=== PATIENT | male | born 1950 | race Caucasian/White ===

== ENCOUNTER → 2017-03-03 | Outpatient (CLI) | payer MEDICARE ==
[~2017-03-03] MED LIST: ATOR10TA66 PO; CARB1TAB40 PO; CATHETER FLUSH 10 ML SYR IV PRN; IOHEXOL 350 MG/ML 100 ML (OMNIPAQUE 350) VIAL IV ONE; NS 100 ML (IVPB) BAG IV ONE
--- NOTE | 2017-03-03 14:00 | Diagnostic Imaging Report ---
PROCEDURE: CT abdomen and pelvis with contrast. TECHNIQUE: Multiple contiguous axial images were obtained through the abdomen and pelvis after administration of intravenous contrast. INDICATION: Weight loss of one years duration. FINDINGS: There is heterogeneous nodular prostatomegaly indenting the urinary bladder base. A prostatic malignancy could not be excluded, correlate clinically. Urinary bladder itself appeared intrinsically unremarkable. No periprosthetic or pelvic lymphadenopathy. There is no hydronephrosis. Few tiny low-density hepatic foci near the dome of both left and right lobes are too small to be definitively characterized less than 1 cm but have the appearance most likely reflective of cysts. No convincing evidence for solid or enhancing liver mass. There is no bile duct dilatation. The nonfocal spleen is normal in size and the pancreas was normal. There is no adrenal mass. There is no abdominal, pelvic, mesenteric or retroperitoneal lymphadenopathy. The rectum is nondistended, this may account for its asymmetric somewhat nodular wall thickening. Digital rectal exam or optical sigmoidoscopy recommended to exclude the possibility of mass. No perirectal adenopathy or infiltration. There is no evidence for bowel, biliary or urinary tract obstruction. There is lumbar spondylosis with no acute or suspicious site of bone production or destruction. The lung bases were unremarkable. No free air or pneumatosis. IMPRESSION: 1. Heterogeneous nodular prostamegaly indents the bladder base, unobstructed urinary tracts with no abdominopelvic adenopathy. Scattered subcentimeter hepatic hypodensities multiple small cysts are felt most likely. There was no bowel, biliary or urinary tract obstruction and no lymphadenopathy or acute/suspicious bony pathology. 2. Somewhat heterogeneous nodular thickening of the rectum may merely reflect its lack of distention however neoplastic infiltration could not be entirely excluded. MARILU versus optical scope recommended to exclude the possibility of mass. Dictated by: Dictated on workstation # [id number]
== END ==
LOC: RAD 11:23
PROVIDERS: ATTEND Family Medicine
DX: N40.0 Benign prostatic hyperplasia without lower urinary tract symptoms (principal); K76.9 Liver disease, unspecified; K62.89 Other specified diseases of anus and rectum
CPT/HCPCS: 74177

== ENCOUNTER 2017-03-14 09:00 | Outpatient (CLI) | payer MEDICARE ==
[~2017-03-14] VITALS: Ht 172.7 cm; Wt 61.2 kg
[~2017-03-14 09:00] MED LIST changes: +ASPI-586 PO; +CARB1TAB41 PO; -CATHETER FLUSH 10 ML SYR IV PRN; +CYCL10TA9 PO; -IOHEXOL 350 MG/ML 100 ML (OMNIPAQUE 350) VIAL IV ONE; -NS 100 ML (IVPB) BAG IV ONE
== END 2017-03-14 09:07 ==
LOC: PREOP 09:00
PROVIDERS: ATTEND Surgery
DX: K92.1 Melena; Z01.818 Encounter for other preprocedural examination; R93.3 Abnormal findings on diagnostic imaging of other parts of digestive tract; R63.4 Abnormal weight loss

== ENCOUNTER 2017-03-15 06:35 | Day surgery (SDC) | payer MEDICARE ==
[~2017-03-15] VITALS: Ht 172.7 cm; Wt 61.2 kg
--- OUTSIDE RECORDS SUMMARY | 2017-03-15 06:38 | XMS REPORT | Continuity of Care Document ---
Author Author [facility] Organization [facility] Address Unknown Phone Unavailable Allergies Active Description Code Type Severity Reaction Onset Reported/Identified Relationship to Patient Clinical Status Yes No Known Drug Allergies [id number] Drug Allergy Unknown N/ A 08/13/2013 Medications Problems Date Dx Coded Attending Type Code Diagnosis Diagnosed By 03/03/2017 ROWENA NAYLOR MD Ot 332.0 PARALYSIS AGITANS 03/08/2017 GELLENDER DO, NIRAV Witt Ot K62.89 OTHER SPECIFIED DISEASES OF ANUS AND REC 03/08/2017 GELLENDER DO, NIRAV Witt Ot K76.9 LIVER DISEASE, UNSPECIFIED 03/08/2017 GELLENDER DO, NIRAV Witt Ot N40.0 BENIGN PROSTATIC HYPERPLASIA WITHOUT LOW 03/08/2017 GELLENDER DO, NIRAV Witt Ot K62.89 OTHER SPECIFIED DISEASES OF ANUS AND REC 03/08/2017 GELLENDER DO, NIRAV Witt Ot K76.9 LIVER DISEASE, UNSPECIFIED 03/08/2017 GELLENDER DO, NIRAV Witt Ot N40.0 BENIGN PROSTATIC HYPERPLASIA WITHOUT LOW 03/08/2017 GELLENDER DO, NIRAV Witt Ot K62.89 OTHER SPECIFIED DISEASES OF ANUS AND REC 03/08/2017 GELLENDER DO, NIRAV Witt Ot K76.9 LIVER DISEASE, UNSPECIFIED 03/08/2017 GELLENDER DO, NIRAV Witt Ot N40.0 BENIGN PROSTATIC HYPERPLASIA WITHOUT LOW 03/09/2017 ROWENA NAYLOR MD Ot 332.0 PARALYSIS AGITANS 03/09/2017 GELLENDER DO, NIRAV Witt Ot K62.89 OTHER SPECIFIED DISEASES OF ANUS AND REC 03/09/2017 GELLENDER DO, NIRAV Witt Ot K76.9 LIVER DISEASE, UNSPECIFIED 03/09/2017 GELLENDER DO, NIRAV Witt Ot N40.0 BENIGN PROSTATIC HYPERPLASIA WITHOUT LOW 03/09/2017 ROWENA NAYLOR MD Ot 332.0 PARALYSIS AGITANS 03/09/2017 GELLENDER DO, NIRAV Witt Ot K62.89 OTHER SPECIFIED DISEASES OF ANUS AND REC 03/09/2017 NIRAV JOSE DO Ot K76.9 LIVER DISEASE, UNSPECIFIED 03/09/2017 NIRAV JOSE DO Ot N40.0 BENIGN PROSTATIC HYPERPLASIA WITHOUT LOW Procedures Results Encounters ACCT No. Visit Date/Time Discharge Status Pt. Type Provider Facility Loc./Unit Complaint [id number] 02/19/2014 08:04:00 2013 23:59:59 CLS Outpatient DAYDAY TURNER, ROWENA Fernandez [facility] RAD PARKINSON 332.0 [id number] 08/13/2013 13:04:00 2012 23:59:59 CLS Outpatient [id number] 08/07/2013 07:18:00 2012 23:59:59 CLS Outpatient [id number] 03/16/2017 12:45:00 PEN Jaquan HSU MD, MARIAMA Coats [facility] ENDO WEIGHT LOSS/BLOOD IN STOOLS/ABNORMAL CT [id number] 03/03/2017 11:23:00 ACT Outpatient NIRAV JOSE DO [facility] RAD WEIGHT LOSS
[2017-03-15] MEDS ORDERED: FLUMAZENIL (ROMAZICON) 0.1 MG/ML 5 ML VIAL INJ PRN (07:00)
[2017-03-15] MEDS ORDERED: NALOXONE 0.4 MG/ML 1 ML (NARCAN) VIAL IVP PRN (07:00)
[2017-03-15] MEDS ORDERED: HURRICAINE EXT TUBE (BENZOCAINE) XX PRN (07:00)
[2017-03-15] MEDS ORDERED: NS IV 500 ML 500 ML IV SCH (07:00)
[2017-03-15 07:03] VITALS: BP 145/102
[2017-03-15] MEDS ORDERED: fentaNYL INJECTION 100 MCG/2 ML AMP ONE ×2 (08:04)
[2017-03-15] MEDS ORDERED: MIDAZOLAM 2 MG/2 ML (VERSED) VIAL ONE ×4 (08:05)
[2017-03-15] MEDS ORDERED: HURRICAINE EXT TUBE (BENZOCAINE) ONE (08:05)
[2017-03-15] MEDS: fentaNYL INJECTION 100 MCG/2 ML AMP IVP PRN ×2 (08:20→08:23)
[2017-03-15] MEDS: MIDAZOLAM 2 MG/2 ML (VERSED) VIAL IVP PRN ×2 (08:22→08:25)
[2017-03-15] MEDS ORDERED: proPOfol 200 MG/20 ML (DIPRIVAN) VIAL IV ONE (08:49)
--- NOTE | 2017-03-15 09:11 | Conscious Sedation/ASA ---
Conscious Sedation Pre-Proced Time Reviewed: 08:09 ASA Class: 3 Airway Mallampati Classification: (upper mattaponi appropriate class) I. II. III, IV Lungs Heart ASA score ASA 1: a normal healthy patient ASA 2: a patient with a mild systemic disease (mid diabetes, controlled hypertension, obesity ASA 3: a patient with a severe systemic disease that limits activity (angina , COPD, prior Myocardial infarction) ASA 4: a patient with an incapacitating disease that is a constant threat to life (CHF, renal failure) ASA 5: a moribund patient not expected to survive 24 hrs. (ruptured aneurysm) ASA 6: a declared brain patient whose organs are being harvested. For emergent operations, add the letter E after the classification Grade 2 Sedation Plan: Discussed options with patient/fam Note The patient is an appropriate candidate to undergo the planned procedure, sedation, and anesthesia. The patient immediately re-assessed prior to indication. MARIAMA HSU MD Mar 15, 2017 9:11 am
--- NOTE | 2017-03-15 09:13 | Anesthesia-Procedure Note ---
Procedure Start/Stop Time Date of Procedure: Mar 15, 2017 Start Time: 08:55 Referring Physician: Elieser Stop Time: 09:00 Procedures/Interventions Procedures Called to Endo to assist Dr. Mon with EGD. Had attempted multiple times under conscious sedation to pass EGD scope unsuccessfully due to epiglottis/ airway. Brief history obtained. Preoxygenated with 100% FiO2, Propofol 100mg IV given, DL with Urena 2 and successful placement of scope in esophagus. Pt maintained spontaneous ventilation throughout procedure, SPO2 99%. Procedure completed, vital signs stable. JENNIE RAYA CRNA Mar 15, 2017 09:13
--- NOTE | 2017-03-15 09:13 | Endo Procedure Record ---
Endo Procedure Report Date of Procedure Mar 15, 2017 Surgeon (s) MARIAMA HSU MD Post Procedure/Op Diagnosis hiatal hernia Hemorrhoids and diverticulosis Procedure Performed upper GI endoscopy with antral biopsy Colonoscopy to cecum Description of Procedure Anesthesia Type: Conscious Sedation Estimated blood loss (mL): none Specimen(s) collected/removed antral mucosa for Helicobacter Description of the Procedure see operative report Findings of the Procedure hiatal hernia. Hemorrhoids and diverticulosis on colonoscopy MARIAMA HSU MD Mar 15, 2017 9:13 am
--- NOTE | 2017-03-15 09:14 | Discharge Inst-Simple/Standard ---
Discharge Inst-Standard Discharge Medications New, Converted or Re-Newed RX: Other Patient Instructions/Follow Up Plan of Care/Instructions/FU: follow-up with Dr. Joshi Activity as Tolerated: Yes Discharge Diet: No Restrictions MARIAMA HSU MD Mar 15, 2017 9:14 am
[2017-03-15 09:25] VITALS: BP 128/81
[2017-03-15 09:55] VITALS: BP 127/83
[2017-03-15 10:15] VITALS: BP 127/83
--- NOTE | 2017-03-16 13:04 | PROCEDURE REPORT ---
PROCEDURE PHYSICIAN: MARIAMA HSU DATE OF PROCEDURE: 03/15/2017 PROCEDURE: 1. Upper GI endoscopy with antral biopsy. 2. Colonoscopy. SURGEON: Elieser. INDICATION FOR THE PROCEDURE: This gentleman with severe Parkinson's disease, reported a weight loss of 30 pounds over a 6 month period. In addition, there was occult blood in the stools. A CT scan showed thickening and irregularity of the rectum. Therefore, it was felt reasonable to perform an upper endoscopy, with concomitant colonoscopy. Informed consent was obtained after reviewing the procedures in detail. DESCRIPTION OF PROCEDURE: 1. UPPER GI ENDOSCOPY/ANTRAL BIOPSY: He was placed in left lateral decubitus position and his vital signs were monitored. Conscious sedation was achieved initially using Versed and propofol but subsequently, we had the RADIOLOGIST CHIEF OF BREAST IMAGING take over with propofol infusion. The flexible gastroscope was introduced down the pharynx, past the esophagus to the stomach, into the proximal duodenum. During the initial attempts. the epiglottis would not move, prompting intubation of the trachea. Subsequently, our RADIOLOGIST CHIEF OF BREAST IMAGING was able to facilitate visualizing the pharynx using a laryngoscope and help guide the gastroscope down the esophagus. FINDINGS: 1. Esophagus: Quite tortuous with a short hiatal hernia. 2. Stomach and duodenum: Were normal. 3. An antral biopsy was obtained for Helicobacter status. He tolerated the procedure well and was turned around in preparation for colonoscopy. IMPRESSION: 1. Weight loss. 2. No contributing lesions found in the stomach. 2. COLONOSCOPY: Examination of the perianal area revealed large external hemorrhoids. Digital examination revealed a thickened prostate. It is notable that his PSA is elevated and therefore he would be evaluated by a urologist, for consideration of prostate biopsy. The colonoscope was then introduced into the rectum and advanced all the way up to the cecum. The scope was then withdrawn slowly and the mucosa examined in a systematic fashion. FINDINGS: 1. External and internal hemorrhoids. 2. Very few sigmoid diverticula. He tolerated the procedures well and was taken back to the nursing area in a stable condition. IMPRESSION: 1. Blood in stools. 2. Hemorrhoids. possibly contributing factor. 3. No polyps. Job ID: [id number] Dictated Date: 03/15/2017 09:11:18 Quarryman Date: 03/16/2017 12:50:46 / addison STOCK
== END 2017-03-15 10:15 | disposition home or self-care (01) ==
LOC: ENDO 06:35
PROVIDERS: ATTEND Surgery
DX: R63.4 Abnormal weight loss (principal); K57.30 Diverticulosis of large intestine without perforation or abscess without bleeding; K64.4 Residual hemorrhoidal skin tags; K64.8 Other hemorrhoids; K92.1 Melena; E78.5 Hyperlipidemia, unspecified; G20 Parkinson's disease; F02.81 Dementia in other diseases classified elsewhere, unspecified severity, with behavioral disturbance

== ENCOUNTER 2017-04-21 11:15 | Inpatient (IN) | payer MEDICARE ==
[~2017-04-21] VITALS: Ht 172.7 cm; Wt 64.0 kg
--- NOTE | 2017-04-21 11:30 | HISTORY AND PHYSICAL ---
DATE OF SERVICE: CHIEF COMPLAINT: Patient to be admitted to the hospital for cellulitis of the left hand going up the left forearm to the elbow. The patient has been treated on an outpatient basis without success. The patient needs inpatient and IV antibiotics. The patient has a history of Parkinson's disease. MEDICATIONS: The patient now on: 1. Sinemet. 2. Flexeril. 3. Maybe aspirin. The patient has been on oral antibiotics without success. The patient with outpatient failure. ALLERGIES TO MEDICATIONS: Denies. SURGERIES: Denies. PAST MEDICAL HISTORY: The patient has Parkinson's disease. REVIEW OF SYSTEMS: HEAD: Denies headache, dizziness, fainting. EENT: Denies diplopia, tinnitus, sore throat. HEART. Denies heartburn, chest pain, shortness of breath. LUNGS: Denies asthma, TB, coughing, congestion, or wheezing. GASTROINTESTINAL: Appetite fair. Denies blood in stools, diarrhea, constipation, nausea, vomiting. GENITOURINARY: Denies blood pain, frequency. PHYSICAL EXAMINATION: GENERAL: The patient is a white male, well-nourished, well-developed, in no acute respiratory distress at rest. : Not inflamed. EYES: No conjunctivitis. THROAT: Clear throat, not inflamed. NECK: Thyroid not enlarged. cervical lymphadenopathy noted. HEART: Regular rate and rhythm. LUNGS: Clear to auscultation. ABDOMEN: Soft. Liver and spleen nonpalpable. EXTREMITIES: Left hand and arm, red and inflamed and swollen. No pretibial edema. Job ID: [id number] DocumentID: [id number] Dictated Date: 04/21/2017 11:13:44 Joint Supervisor Date: 04/21/2017 11:29:56 Dictated By: NIRAV JOSE DO
--- OUTSIDE RECORDS SUMMARY | 2017-04-21 11:52 | XMS REPORT | Continuity of Care Document ---
Author Author [facility] Organization [facility] Address Unknown Phone Unavailable Allergies Active Description Code Type Severity Reaction Onset Reported/Identified Relationship to Patient Clinical Status Yes No Known Drug Allergies [id number] Drug Allergy Unknown N/ A 03/15/2017 Medications Problems Date Dx Coded Attending Type [...] Ot N40.0 BENIGN PROSTATIC HYPERPLASIA WITHOUT LOW 03/14/2017 SHADI TURNER, MARIAMA Coats Ot K92.1 MELENA 03/14/2017 MARIAMA HSU MD Ot R63.4 ABNORMAL WEIGHT LOSS 03/14/2017 SHADI TURNER, MARIAMA Coats Ot R93.3 ABNORMAL FINDINGS ON DX IMAGING OF PRT D 03/14/2017 SHADI TURNER, MARIAMA Coats Ot Z01.818 ENCOUNTER FOR OTHER PREPROCEDURAL EXAMIN 03/15/2017 MOISÉS SHAY DO Ot 455.0 INT HEMORRHOID W/O COMPL 03/15/2017 MOISÉS SHAY DO Ot 562.10 DIVERTICULOSIS COLON (W/O MENT OF HEMORR 03/15/2017 MOISÉS SHAY DO Ot V76.51 SCREEN MAL NEOP-COLON 03/15/2017 MOISÉS SHAY DO Ot V72.84 EXAM PRE-OPERATIVE NOS 03/15/2017 MARIAMA HSU MD Ot E78.5 HYPERLIPIDEMIA, UNSPECIFIED 03/15/2017 MARIAMA HSU MD Ot F02.81 DEMENTIA IN OTH DISEASES CLASSD ELSWHR W 03/15/2017 MARIAMA HSU MD Ot G20 PARKINSON'S DISEASE 03/15/2017 MARIAMA HSU MD Ot K57.30 DVRTCLOS OF LG INT W/O PERFORATION OR AB 03/15/2017 MARIAMA HSU MD Ot K64.4 RESIDUAL HEMORRHOIDAL SKIN TAGS 03/15/2017 MARIAMA HSU MD Ot K64.8 OTHER HEMORRHOIDS 03/15/2017 MARIAMA HSU MD Ot K92.1 MELENA 03/15/2017 MARIAMA HSU MD Ot R63.4 ABNORMAL WEIGHT LOSS 03/25/2017 MARIAMA HSU MD Ot E78.5 HYPERLIPIDEMIA, UNSPECIFIED 03/25/2017 MARIAMA HSU MD Ot F02.81 DEMENTIA IN OTH DISEASES CLASSD ELSWHR W 03/25/2017 MARIAMA HSU MD Ot G20 PARKINSON'S DISEASE 03/25/2017 MARIAMA SHU MD Ot K57.30 DVRTCLOS OF LG INT W/O PERFORATION OR AB 03/25/2017 SHADI TURNER, MARIAMA Coats Ot K64.4 RESIDUAL HEMORRHOIDAL SKIN TAGS 03/25/2017 MARIAMA HSU MD Ot K64.8 OTHER HEMORRHOIDS 03/25/2017 MARIAMA HSU MD Ot K92.1 MELENA 03/25/2017 MARIAMA HSU MD Ot R63.4 ABNORMAL WEIGHT LOSS 03/27/2017 NIRAV JOSE DO Ot K62.89 OTHER SPECIFIED DISEASES OF ANUS AND REC 03/27/2017 NIRAV JOSE DO Ot K76.9 LIVER DISEASE, UNSPECIFIED 03/27/2017 NIRAV JOSE DO Ot N40.0 BENIGN PROSTATIC HYPERPLASIA WITHOUT LOW 03/28/2017 MARIAMA HSU MD Ot E78.5 HYPERLIPIDEMIA, UNSPECIFIED 03/28/2017 MARIAMA HSU MD Ot F02.81 DEMENTIA IN OTH DISEASES CLASSD ELSWHR W 03/28/2017 MARIAMA HSU MD Ot G20 PARKINSON'S DISEASE 03/28/2017 MARIAMA HSU MD Ot K57.30 DVRTCLOS OF LG INT W/O PERFORATION OR AB 03/28/2017 MARIAMA HSU MD Ot K64.4 RESIDUAL HEMORRHOIDAL SKIN TAGS 03/28/2017 MARIAMA HSU MD Ot K64.8 OTHER HEMORRHOIDS 03/28/2017 MARIAMA HSU MD Ot K92.1 MELENA 03/28/2017 MARIAMA HSU MD Ot R63.4 ABNORMAL WEIGHT LOSS Procedures Results Encounters ACCT No. Visit Date/Time Discharge Status Pt. Type Provider Facility Loc./Unit Complaint [id number] 03/15/2017 06:35:00 2016 10:15:00 DIS Outpatient MARIAMA HSU MD [facility] ENDO WEIGHT LOSS/BLOOD IN STOOLS/ ABNORMAL CT [id number] 03/14/2017 09:00:00 2016 09:07:00 DIS Outpatient MARIAMA HSU MD [facility] PREOP WEIGHT LOSS/BLOOD IN STOOL/ ABNORMAL CT [id number] 03/03/2017 11:23:00 2016 23:59:59 CLS Outpatient NIRAV JOSE DO [facility] RAD WEIGHT LOSS [id number] 02/19/2014 08:04:00 2013 23:59:59 CLS Outpatient ROWENA NAYLOR MD [facility] RAD PARKINSON 332.0 [id number] 08/13/2013 13:04:00 2012 23:59:59 CLS Outpatient MOISÉS SHAY DO [facility] SDC SCREENING [id number] 08/07/2013 07:18:00 2012 23:59:59 CLS Outpatient MOISÉS SHAY DO [facility] PREOP SCREENING
[2017-04-21 12:00] VITALS: BP 149/83
[2017-04-21 13:00] LABS: MEAN PLATELET VOLUME 10.4 FL (7.4-10.4); RED BLOOD COUNT 4.03 10^6/uL (4.35-5.85); WHITE BLOOD COUNT 10.2 10^3/uL (4.3-11.0)
[2017-04-21] MEDS ORDERED: CEFD300C3 PO (13:10)
[2017-04-21] MEDS ORDERED: DOXY100T2 PO (13:10)
[2017-04-21] MEDS: LEVOFLOXACIN 750 MG/D5W 150 ML PRE-MIX IV SCH (13:10)
[2017-04-21] MEDS ORDERED: CARB1TAB19 PO (13:10)
[2017-04-21 13:18] LABS: ALANINE AMINOTRANSFERASE 6 U/L (0-55); ALBUMIN 3.8 GM/DL (3.2-4.5); ANION GAP 11 MMOL/L (5-14); ASPARTATE AMINO TRANSFERASE 19 U/L (5-34); BILIRUBIN,TOTAL 0.7 MG/DL (0.1-1.0); BLOOD UREA NITROGEN 11 MG/DL (7-18); BUN/CREATININE RATIO 16; CALCIUM 9.4 MG/DL (8.5-10.1); CARBON DIOXIDE 26 MMOL/L (21-32); CHLORIDE 102 MMOL/L (98-107); GFR ESTIMATED > 60; GLUCOSE 94 MG/DL (70-105); SODIUM 139 MMOL/L (135-145); TOTAL PROTEIN 7.3 GM/DL (6.4-8.2)
[2017-04-21] MEDS: CATHETER FLUSH 10 ML SYR IV SCH ×2 (14:21→20:48)
[2017-04-21] MEDS ORDERED: VANCOMYCIN 1250 MG/NS 250 ML IVPB IV NR ×2 (14:30)
[2017-04-21] MEDS: SINEMET 25/100 (CARBIDOPA/LEVODOPA) TAB PO SCH ×2 (15:02→19:28)
[2017-04-21 16:00] VITALS: BP 133/80
[2017-04-21] MEDS: SINEMET CR 50/200 (CARBIDOPA/LEVODOPA SA) TAB PO SCH (16:55)
[2017-04-21] MEDS: CYCLOBENZAPRINE 10 MG (FLEXERIL) TAB PO SCH (16:55)
[2017-04-21] MEDS: ENOXAPARIN 40 MG/0.4 ML (LOVENOX) SYR SC SCH (16:55)
[2017-04-21 19:51] VITALS: BP 125/69
[2017-04-21] MEDS: ATORVASTATIN 10 MG (LIPITOR) TABLET PO SCH (20:48)
[2017-04-22] VITALS: BP 113/63
[2017-04-22] MEDS: VANCOMYCIN 1 GM/NS 250 ML IVPB IV SCH ×4 (02:33→14:56)
[2017-04-22 04:00] VITALS: BP 121/63
[2017-04-22] MEDS: SINEMET 25/100 (CARBIDOPA/LEVODOPA) TAB PO SCH ×4 (04:04→18:16)
[2017-04-22] MEDS: CYCLOBENZAPRINE 10 MG (FLEXERIL) TAB PO SCH ×2 (04:04→16:36)
[2017-04-22 05:24] LABS: MEAN PLATELET VOLUME 10.4 FL (7.4-10.4); RED BLOOD COUNT 4.05 10^6/uL (4.35-5.85); RED CELL DISTRIBUTION WIDTH 12.9 % (10.0-14.5); WHITE BLOOD COUNT 7.8 10^3/uL (4.3-11.0)
[2017-04-22 05:51] LABS: ALANINE AMINOTRANSFERASE < 6 U/L (0-55); ALBUMIN 3.3 GM/DL (3.2-4.5); ANION GAP 8 MMOL/L (5-14); ASPARTATE AMINO TRANSFERASE 16 U/L (5-34); BILIRUBIN,TOTAL 0.8 MG/DL (0.1-1.0); BLOOD UREA NITROGEN 12 MG/DL (7-18); BUN/CREATININE RATIO 18; CALCIUM 8.9 MG/DL (8.5-10.1); CARBON DIOXIDE 27 MMOL/L (21-32); CHLORIDE 105 MMOL/L (98-107); CREATININE SERUM 0.67 MG/DL (0.60-1.30); GFR ESTIMATED > 60; GLUCOSE 97 MG/DL (70-105); SODIUM 140 MMOL/L (135-145); TOTAL PROTEIN 6.3 GM/DL (6.4-8.2)
[2017-04-22] MEDS: CATHETER FLUSH 10 ML SYR IV SCH ×3 (06:23→21:23)
[2017-04-22] MEDS: SINEMET CR 50/200 (CARBIDOPA/LEVODOPA SA) TAB PO SCH ×3 (06:23→16:36)
[2017-04-22 08:14] VITALS: BP 136/74
--- NOTE | 2017-04-22 11:11 | Progress Note (SOAP) ---
Subjective Subjective Date Seen by Provider: Apr 22, 2017 Time Seen by Provider: 10:30 66 yo M no overnight events- admitted for cellulitis of his left arm after a cyst ruptured. Pt has been on antibiotics as an outpt without resolution. Review of Systems General: No Chills, No Night Sweats HEENT: No Visual Changes Pulmonary: No Dyspnea, No Cough Cardiovascular: No: Chest Pain, Palpitations Gastrointestinal: No: Nausea, Vomiting Genitourinary: No Dysuria Musculoskeletal: arm pain (left), No: neck pain, shoulder pain Neurological: Weakness Objective Exam Vital Signs Vital Signs Date Time Temp Pulse Resp B/P (MAP) Pulse Ox O2 Delivery O2 Flow Rate FiO2 04/22/17 08:14 97.3 82 20 136/74 99 Room Air 04/22/17 04:00 98.4 72 18 121/63 99 Room Air 04/22/17 00:00 98.5 74 20 113/63 99 Room Air 04/21/17 19:51 97.9 76 19 125/69 97 Room Air 04/21/17 16:00 96.4 71 18 133/80 99 Room Air 04/21/17 12:30 Room Air 04/21/17 12:00 96.9 76 18 149/83 100 Room Air General Appearance: No Apparent Distress, WD/WN HEENT: PERRL/EOMI Neck: Full Range of Motion, Other (pedunculated cyst/mass noted in neck.) Respiratory: Chest Non Tender, Lungs Clear, Normal Breath Sounds, No Accessory Muscle Use, No Respiratory Distress Cardiovascular: Regular Rate, Rhythm, No Edema Gastrointestinal: Normal Bowel Sounds, Soft Rectal: Deferred Back: No CVA Tenderness Extremity: Non Tender, No Calf Tenderness, Other (left arm- erythema- fluctuance in left forearm- warmth noted.) Neurologic/Psychiatric: Alert, Oriented x3, No Motor/Sensory Deficits Skin: Warm/Dry Lymphatic: No Adenopathy Results Lab Laboratory Tests 04/21/17 12:37: White Blood Count 10.2, Red Blood Count 4.03L, Hemoglobin 12.9L, Hematocrit 39L , Mean Corpuscular Volume 97, Mean Corpuscular Hemoglobin 32, Mean Corpuscular Hemoglobin Concent 33, Red Cell Distribution Width 13.0, Platelet Count 190, Mean Platelet Volume 10.4, Sodium Level 139, Potassium Level 4.0, Chloride Level 102, Carbon Dioxide Level 26, Anion Gap 11, Blood Urea Nitrogen 11, Creatinine 0.70, Estimat Glomerular Filtration Rate > 60, BUN/Creatinine Ratio 16, Glucose Level 94, Calcium Level 9.4, Total Bilirubin 0.7, Aspartate Amino Transf (AST/SGOT) 19, Alanine Aminotransferase (ALT/SGPT) 6, Alkaline Phosphatase 74, Total Protein 7.3, Albumin 3.8 04/22/17 04:55: White Blood Count 7.8, Red Blood Count 4.05L, Hemoglobin 12.9L, Hematocrit 39L, Mean Corpuscular Volume 96, Mean Corpuscular Hemoglobin 32, Mean Corpuscular Hemoglobin Concent 33, Red Cell Distribution Width 12.9, Platelet Count 172, Mean Platelet Volume 10.4, Sodium Level 140, Potassium Level 4.0, Chloride Level 105, Carbon Dioxide Level 27, Anion Gap 8, Blood Urea Nitrogen 12, Creatinine 0.67, Estimat Glomerular Filtration Rate > 60, BUN/Creatinine Ratio 18, Glucose Level 97, Calcium Level 8.9, Total Bilirubin 0.8, Aspartate Amino Transf (AST/SGOT) 16, Alanine Aminotransferase (ALT/SGPT) < 6, Alkaline Phosphatase 62, Total Protein 6.3L, Albumin 3.3 Assessment/Plan Assessment/Plan Assessment/Plan 66 yo M cellulitis of left arm- continue vancomycin, levofloxacin- appearing. Parkinson disease-continue sinemet hyperlipidemia- on statin. Dispo: afebrile- continue IV antibiotics- will monitor for improvement- possibly his left forearm may been incision and drainage Problems: Clinical Quality Measures DVT/VTE Risk/Contraindication: Risk Factor Score Per Nursin RFS Level Per Nursing on Admit: 4+=Very High DONALD BERMUDEZ MD Apr 22, 2017 11:11
[2017-04-22 12:00] VITALS: BP 147/78
[2017-04-22] MEDS ORDERED: TROUGH ORDER-PHARMACY XX NR (13:30)
[2017-04-22] MEDS: LEVOFLOXACIN 750 MG/D5W 150 ML PRE-MIX IV SCH (13:43)
[2017-04-22] MEDS: ENOXAPARIN 40 MG/0.4 ML (LOVENOX) SYR SC SCH (14:56)
[2017-04-22 16:00] VITALS: BP 123/71
[2017-04-22 20:18] VITALS: BP 123/75
[2017-04-22] MEDS: ATORVASTATIN 10 MG (LIPITOR) TABLET PO SCH (21:23)
[2017-04-23] VITALS: BP 159/88
[2017-04-23] MEDS: VANCOMYCIN 1 GM/NS 250 ML IVPB IV SCH ×4 (02:42→14:11)
[2017-04-23] MEDS: CYCLOBENZAPRINE 10 MG (FLEXERIL) TAB PO SCH ×2 (04:28→16:12)
[2017-04-23] MEDS: SINEMET 25/100 (CARBIDOPA/LEVODOPA) TAB PO SCH ×4 (04:28→18:37)
[2017-04-23] MEDS: CATHETER FLUSH 10 ML SYR IV SCH ×3 (05:08→21:26)
[2017-04-23] MEDS: SINEMET CR 50/200 (CARBIDOPA/LEVODOPA SA) TAB PO SCH ×3 (05:31→16:12)
[2017-04-23 08:12] VITALS: BP 142/80
[2017-04-23] MEDS: LEVOFLOXACIN 750 MG/D5W 150 ML PRE-MIX IV SCH (12:18)
[2017-04-23] MEDS: CATHETER FLUSH 10 ML SYR IV PRN (12:18)
--- NOTE | 2017-04-23 12:26 | Progress Note (SOAP) ---
Subjective Subjective Date Seen by Provider: Apr 23, 2017 Time Seen by Provider: 11:55 66 yo M no overnight events- admitted for cellulitis of his left arm after a cyst ruptured. Pt has been on antibiotics as an outpt without resolution. Doing better pain has improved- He feels like the antibiotics are working. Review of Systems General: No Chills, No Night Sweats HEENT: No Visual Changes Pulmonary: No Dyspnea, No Cough Cardiovascular: No: Chest Pain, Palpitations Gastrointestinal: No: Nausea, Vomiting Genitourinary: No Dysuria Musculoskeletal: arm pain (left), No: neck pain, shoulder pain Neurological: Weakness Objective Exam Vital Signs Vital Sign - Last 12Hours 04/21/17 12:00 Temp 96.9 Pulse 76 Resp 18 B/P (MAP) 149/83 Pulse Ox 100 O2 Delivery Room Air Capillary Refill : Less Than 3 Seconds General Appearance: No Apparent Distress, WD/WN HEENT: PERRL/EOMI Neck: Full Range of Motion, Other (pedunculated cyst/mass noted in neck.) Respiratory: Chest Non Tender, Lungs Clear, Normal Breath Sounds, No Accessory Muscle Use, No Respiratory Distress Cardiovascular: Regular Rate, Rhythm, No Edema Gastrointestinal: Normal Bowel Sounds, Soft Rectal: Deferred Back: No CVA Tenderness Extremity: Non Tender, No Calf Tenderness, Other (left arm- erythema- fluctuance in left forearm- warmth improved, cellulitis regressing.) Neurologic/Psychiatric: Alert, Oriented x3, No Motor/Sensory Deficits Skin: Warm/Dry Lymphatic: No Adenopathy Results Lab Laboratory Tests 04/22/17 13:38: Vancomycin Level Trough 11.1 Microbiology 04/21/17 Blood Culture - Preliminary, Resulted No growth Assessment/Plan Assessment/Plan Assessment/Plan 66 yo M cellulitis of left arm- continue vancomycin, levofloxacin- improving. Parkinson disease-continue sinemet hyperlipidemia- on statin. Dispo: afebrile- continue IV antibiotics-close to switching to po. will monitor for continued improvement- Re-evaluate in AM. Consider incision and drainage of left forearm- Problems: Clinical Quality Measures DVT/VTE Risk/Contraindication: Risk Factor Score Per Nursin RFS Level Per Nursing on Admit: 4+=Very High DONALD BERMUDEZ MD Apr 23, 2017 12:26 pm
[2017-04-23] MEDS: ENOXAPARIN 40 MG/0.4 ML (LOVENOX) SYR SC SCH (14:11)
[2017-04-23 16:01] VITALS: BP 131/79
[2017-04-23] MEDS: ATORVASTATIN 10 MG (LIPITOR) TABLET PO SCH (21:24)
[2017-04-24 00:04] VITALS: BP 156/77
[2017-04-24] MEDS: VANCOMYCIN 1 GM/NS 250 ML IVPB IV SCH ×4 (01:57→14:30)
[2017-04-24] MEDS: SINEMET 25/100 (CARBIDOPA/LEVODOPA) TAB PO SCH ×4 (04:04→19:15)
[2017-04-24] MEDS: CYCLOBENZAPRINE 10 MG (FLEXERIL) TAB PO SCH ×2 (04:04→16:28)
[2017-04-24] MEDS: SINEMET CR 50/200 (CARBIDOPA/LEVODOPA SA) TAB PO SCH ×3 (06:10→16:28)
[2017-04-24] MEDS: CATHETER FLUSH 10 ML SYR IV SCH ×3 (06:11→21:40)
[2017-04-24 08:00] VITALS: BP 124/75
--- NOTE | 2017-04-24 08:35 | Progress Note (SOAP) ---
Subjective Time Seen by Provider: 08:30 Subjective/Events-last exam Cellulitis left forearm with cyst. Swelling has gone down some. Consult surgeon for I&D Objective Exam Vital Signs Date Time Temp Pulse Resp B/P (MAP) Pulse Ox O2 Delivery O2 Flow Rate FiO2 04/24/17 00:04 98.9 74 18 156/77 100 Room Air 04/23/17 16:01 99.1 87 20 131/79 99 Room Air Capillary Refill : Less Than 3 Seconds General Appearance: No Apparent Distress, WD/WN HEENT: Normal ENT Inspection Neck: Normal Inspection Respiratory: No Accessory Muscle Use, No Respiratory Distress Cardiovascular: Regular Rate, Rhythm, No Murmur Results Lab Microbiology 04/21/17 Blood Culture - Preliminary, Resulted No growth Assessment/Plan Assessment/Plan Assess & Plan/Chief Complaint Cellulitis left forearm. Abscess. Consult surgery Clinical Quality Measures DVT/VTE Risk/Contraindication: Risk Factor Score Per Nursin RFS Level Per Nursing on Admit: 4+=Very High NIRAV JOSE DO Apr 24, 2017 08:35
[2017-04-24 09:22] LABS: BASOPHILS % (AUTO) 0 % (0-10); EOSINOPHILS # (AUTO) 0.1 10^3/uL (0.0-0.3); EOSINOPHILS % (AUTO) 1 % (0-10); LYMPHOCYTES # (AUTO) 0.8 X 10^3 (1.0-4.0); LYMPHOCYTES % (AUTO) 8 % (12-44); MEAN CORPUSCULAR HEMOGLOBIN 32 PG (25-34); MEAN CORPUSCULAR HGB CONC 33 G/DL (32-36); MEAN CORPUSCULAR VOLUME 97 FL (80-99); MEAN PLATELET VOLUME 10.6 FL (7.4-10.4); MONOCYTES # (AUTO) 0.5 X 10^3 (0.0-1.0); MONOCYTES % (AUTO) 5 % (0-12); NEUTROPHILS % (AUTO) 87 % (42-75); PLATELET COUNT 178 10^3/uL (130-400); RED BLOOD COUNT 4.51 10^6/uL (4.35-5.85); RED CELL DISTRIBUTION WIDTH 12.9 % (10.0-14.5); WHITE BLOOD COUNT 10.4 10^3/uL (4.3-11.0)
[2017-04-24 09:28] LABS: ANION GAP 9 MMOL/L (5-14); BLOOD UREA NITROGEN 10 MG/DL (7-18); BUN/CREATININE RATIO 14; CALCIUM 9.2 MG/DL (8.5-10.1); CARBON DIOXIDE 28 MMOL/L (21-32); CHLORIDE 101 MMOL/L (98-107); CREATININE SERUM 0.74 MG/DL (0.60-1.30); GFR ESTIMATED > 60; GLUCOSE 161 MG/DL (70-105); POTASSIUM 3.8 MMOL/L (3.6-5.0); SODIUM 138 MMOL/L (135-145)
[2017-04-24 09:51] LABS: EOSINOPHILS % (MANUAL) 1 %; LYMPHOCYTES % (MANUAL) 10 %; NEUTROPHILS % (MANUAL) 87 %
[2017-04-24] MEDS: LEVOFLOXACIN 750 MG/D5W 150 ML PRE-MIX IV SCH (10:49)
[2017-04-24] MEDS: CATHETER FLUSH 10 ML SYR IV PRN (10:49)
[2017-04-24] MEDS ORDERED: LEVOFLOXACIN 750 MG TAB (LEVAQUIN) PO SCH (11:00)
[2017-04-24] MEDS ORDERED: TROUGH ORDER-PHARMACY XX ONE (13:00)
[2017-04-24] MEDS: ENOXAPARIN 40 MG/0.4 ML (LOVENOX) SYR SC SCH (14:30)
[2017-04-24 16:00] VITALS: BP 148/85
--- NOTE | 2017-04-24 19:06 | Consultation ---
History of Present Illness History of Present Illness Patient Consulted On(violet/time) 04/24/17 18:59 Date Seen by Provider: Apr 24, 2017 Time Seen by Provider: 18:59 Reason for Visit: Increasing pain and swelling over the left forearm History of Present Illness Pre-existing cyst over the left forearm with infection Allergies and Home Medications Allergies Coded Allergies: No Known Drug Allergies (Verified , 03/15/17) Home Medications Aspirin 81 Mg Tablet.dr, 81 MG PO 2200, (Reported) Atorvastatin Calcium 10 Mg Tablet, 10 MG PO 2200, (Reported) Carbidopa/Levodopa 1 Each Tablet.er, 1 TAB PO 0600,1100,1600, (Reported) Carbidopa/Levodopa 1 Each Tablet, 1 TAB PO 0500,0900,1400,1900, (Reported) Cefdinir 300 Mg Capsule, 300 MG PO BID for 8 Days, (Reported) 8 DAY THERAPY FILLED 04-19-17 Cyclobenzaprine HCl 10 Mg Tablet, 10 MG PO 0500,1600, (Reported) Doxycycline Hyclate 100 Mg Tablet, 100 MG PO BID for 8 Days, (Reported) 8 DAY THERAPY FILLED 04-19-17 Past Xghifgm-Ngulov-Zresrn Hx Patient Social History Alcohol Use: Denies Use Recreational Drug Use: No Smoking Status: Never a Smoker Recent Foreign Travel: No Contact w/Someone Who Travel: No Recent Infectious Disease Expo: No Recent Hopitalizations: No Seasonal Allergies Seasonal Allergies: No Surgeries History of Surgeries: No Respiratory History of Respiratory Disorde: No Cardiovascular History of Cardiac Disorders: Yes Neurological History of Neurological Disord: Yes Neurological Disorders: Parkinson's Disease Reproductive System Sexually Transmitted Disease: No HIV/AIDS: No Genitourinary History of Genitourinary Disor: No Gastrointestinal History of Gastrointestinal Di: Yes (blood in stools, ) Gastrointestinal Disorders: Hemorrhoids Musculoskeletal History of Musculoskeletal Dis: No Endocrine History of Endocrine Disorders: No HEENT History of HEENT Disorders: Yes ("lump" on neck since he was teenager. no testing done) Loss of Vision: Denies Hearing Impairment: Hard of Hearing Cancer History of Cancer: No Psychosocial History of Psychiatric Problem: No Integumentary History of Skin or Integumenta: No Blood Transfusions History of Blood Disorders: No Review of Systems-General Constitutional: fever, malaise EENTM: no symptoms reported Cardiovascular: no symptoms reported Gastrointestinal: no symptoms reported Genitourinary: no symptoms reported Musculoskeletal: muscle weakness Skin: see HPI Psychiatric/Neurological: Tremors Physical Exam-General Problems Physical Exam Vital Signs Vital Sign - Last 12Hours 04/21/17 12:00 Temp 96.9 Pulse 76 Resp 18 B/P (MAP) 149/83 Pulse Ox 100 O2 Delivery Room Air Capillary Refill : Less Than 3 Seconds General Appearance: mild distress HEENT: normal ENT inspection Neck: full range of motion Comments Ptosis of eyelids. 3 cm lonnie cyst anterior neck. Cellulitis of left forearm with a 10 cm abscess Assessment/Plan Assessment/Plan Admission Diagnosis/Plan Absscess left forearm, For I&D Clinical Quality Measures DVT/VTE Risk/Contraindication: Risk Factor Score Per Nursin RFS Level Per Nursing on Admit: 4+=Very High MARIAMA HSU MD Apr 24, 2017 7:06 pm
--- NOTE | 2017-04-24 19:07 | Progress Note-Pre Operative ---
Pre-Operative Progress Note H&P Reviewed The H&P was reviewed, patient examined and no changes noted. Date Seen by Provider: Apr 24, 2017 Time Seen by Provider: 19:06 Date H&P Reviewed: Apr 24, 2017 Time H&P Reviewed: 19:06 Pre-Operative Diagnosis: Abscess of left forearm MARIAMA HSU MD Apr 24, 2017 7:07 pm
[2017-04-24] MEDS ORDERED: fentaNYL INJECTION 100 MCG/2 ML AMP ONE (19:22)
[2017-04-24] MEDS ORDERED: LIDOCAINE PF 2% 5 ML (XYLOCAINE) VIAL ONE (19:22)
[2017-04-24] MEDS ORDERED: proPOfol 200 MG/20 ML (DIPRIVAN) VIAL IV ONE (19:22)
[2017-04-24] MEDS ORDERED: ONDANSETRON 4 MG/2 ML (SDV) Z0FRAN ONE ×2 (19:22→19:46)
[2017-04-24] MEDS ORDERED: LACTATED RINGERS 1,000 ML IV PRN (19:22)
[2017-04-24] MEDS ORDERED: MIDAZOLAM 2 MG/2 ML (VERSED) VIAL ONE (19:23)
[2017-04-24 19:41] VITALS: BP 157/93
[2017-04-24] MEDS ORDERED: morphine INJ 10 MG/ML 1ML (SYR OR VIAL) ONE (19:45)
[2017-04-24] MEDS ORDERED: KETOROLAC 30 MG/ML VIAL ONE (19:45)
[2017-04-24] MEDS: BUP/EPI 0.5% 1:200,000 (MARCAINE) 10ML VIAL IJ ONE ×2 (20:09→20:21)
[2017-04-24] MEDS ORDERED: LACTATED RINGERS 1,000 ML IV ONE (20:16)
[2017-04-24] MEDS ORDERED: SEVOFLURANE (ULTANE) 15 ML INHAL SOLN ONE (20:16)
--- NOTE | 2017-04-24 20:34 | Operative Report ---
Operative Report Date of Procedure/Surgery Apr 24, 2017 Surgeon (s) MARIAMA HSU MD [employer] (s): iAlyn Doll, medical student Post-Operative Diagnosis Same Procedure Performed Incision and drainage Description of Procedure Anesthesia Type: General Estimated blood loss (mL): Minimal Specimen(s) collected/removed Pus for culture and sensitivity Description of the Procedure Indication for the procedure: This gentleman has been admitted with cellulitis involving the left forearm, with a localized abscess along the volar aspect. Following a brief period of intravenous antibiotics, he was offered formal incision and drainage. Informed consent was obtained after reviewing the procedure in detail. Description of the procedure:He was placed supine on the operative table and general anesthesia induced. He had received intravenous vancomycin prior to his arrival in the operating room. Left forearm was prepared and draped in the usual sterile manner. A 5 cm transverse incision was made, in an elliptical fashion and the necrotic edges of the skin where excised. The abscess cavity was evacuated and was sent for culture. Hemostasis was achieved using cautery and ligaclips. The wound was irrigated with saline and a nonadherent dressing applied. He tolerated the procedure well and was taken back to the recovery room, after being extubated. Findings of the Procedure See operative report Allergies and Home Medications Allergies Coded Allergies: No Known Drug Allergies (Verified , 03/15/17) Home Medications Aspirin 81 Mg Tablet.dr, 81 MG PO 2200, (Reported) Atorvastatin Calcium 10 Mg Tablet, 10 MG PO 2200, (Reported) Carbidopa/Levodopa 1 Each Tablet.er, 1 TAB PO 0600,1100,1600, (Reported) Carbidopa/Levodopa 1 Each Tablet, 1 TAB PO 0500,0900,1400,1900, (Reported) Cefdinir 300 Mg Capsule, 300 MG PO BID for 8 Days, (Reported) 8 DAY THERAPY FILLED 04-19-17 Cyclobenzaprine HCl 10 Mg Tablet, 10 MG PO 0500,1600, (Reported) Doxycycline Hyclate 100 Mg Tablet, 100 MG PO BID for 8 Days, (Reported) 8 DAY THERAPY FILLED 04-19-17 MARIAMA HSU MD Apr 24, 2017 8:34 pm
[2017-04-24] MEDS ORDERED: HYDROcodone/APAP 5 MG/325 MG (LORTAB) TAB PO PRN (20:45)
[2017-04-24] MEDS ORDERED: ONDANSETRON 4 MG/2 ML (SDV) Z0FRAN IVP PRN ×2 (20:45)
[2017-04-24] MEDS ORDERED: morphine INJ 10 MG/ML 1ML (SYR OR VIAL) IVP PRN (20:45)
[2017-04-24] MEDS ORDERED: fentaNYL INJECTION 100 MCG/2 ML AMP IVP PRN (20:45)
[2017-04-24] MEDS: ATORVASTATIN 10 MG (LIPITOR) TABLET PO SCH (21:36)
[2017-04-24 21:38] VITALS: BP 161/89
[2017-04-24 23:23] VITALS: BP 165/84
[2017-04-25] MEDS: VANCOMYCIN 1 GM/NS 250 ML IVPB IV SCH ×4 (01:59→14:12)
[2017-04-25 03:57] VITALS: BP 161/84
[2017-04-25] MEDS: SINEMET 25/100 (CARBIDOPA/LEVODOPA) TAB PO SCH ×4 (04:25→18:21)
[2017-04-25] MEDS: CYCLOBENZAPRINE 10 MG (FLEXERIL) TAB PO SCH ×2 (04:25→15:38)
[2017-04-25] MEDS: CATHETER FLUSH 10 ML SYR IV SCH ×3 (04:25→21:43)
[2017-04-25] MEDS: SINEMET CR 50/200 (CARBIDOPA/LEVODOPA SA) TAB PO SCH ×3 (05:28→15:38)
[2017-04-25 06:48] LABS: BASOPHILS % (AUTO) 1 % (0-10); EOSINOPHILS # (AUTO) 0.1 10^3/uL (0.0-0.3); EOSINOPHILS % (AUTO) 1 % (0-10); LYMPHOCYTES # (AUTO) 0.9 X 10^3 (1.0-4.0); LYMPHOCYTES % (AUTO) 11 % (12-44); MEAN CORPUSCULAR HEMOGLOBIN 32 PG (25-34); MEAN CORPUSCULAR HGB CONC 33 G/DL (32-36); MEAN CORPUSCULAR VOLUME 95 FL (80-99); MEAN PLATELET VOLUME 10.4 FL (7.4-10.4); MONOCYTES # (AUTO) 0.7 X 10^3 (0.0-1.0); MONOCYTES % (AUTO) 8 % (0-12); NEUTROPHILS # (AUTO) 6.2 X 10^3 (1.8-7.8); NEUTROPHILS % (AUTO) 79 % (42-75); PLATELET COUNT 188 10^3/uL (130-400); RED BLOOD COUNT 4.35 10^6/uL (4.35-5.85); RED CELL DISTRIBUTION WIDTH 12.5 % (10.0-14.5); WHITE BLOOD COUNT 7.9 10^3/uL (4.3-11.0)
--- NOTE | 2017-04-25 07:29 | Progress Note (SOAP) ---
Subjective Time Seen by Provider: 07:25 Subjective/Events-last exam infected abscess forearm. Hypertension. Patient feeling good today. Patient had surgery yesterday. Waiting for culture results. Patient voices no complaints. Parkinson disease. Patient previously has not had hypertension Objective Exam Vital Signs Date Time Temp Pulse Resp B/P (MAP) Pulse Ox O2 Delivery O2 Flow Rate FiO2 04/25/17 03:57 96.7 75 18 161/84 98 Room Air 04/24/17 23:23 97.1 72 18 165/84 97 Room Air 04/24/17 21:38 98.4 73 18 161/89 100 Room Air 04/24/17 19:45 Room Air 04/24/17 19:41 97.5 97 20 157/93 98 Room Air 04/24/17 16:00 96.8 79 20 148/85 99 Room Air 04/24/17 08:00 98.9 72 18 124/75 100 Room Air Capillary Refill : Less Than 3 Seconds General Appearance: No Apparent Distress, WD/WN HEENT: Normal ENT Inspection Neck: Full Range of Motion, Normal Inspection Respiratory: Chest Non Tender, Lungs Clear, Normal Breath Sounds, No Accessory Muscle Use, No Respiratory Distress Cardiovascular: Regular Rate, Rhythm, No Murmur Gastrointestinal: non tender, soft Results Lab Laboratory Tests 04/24/17 08:57 04/25/17 06:17 Laboratory Tests 04/24/17 08:57: White Blood Count 10.4, Red Blood Count 4.51, Hemoglobin 14.5, Hematocrit 44, Mean Corpuscular Volume 97, Mean Corpuscular Hemoglobin 32, Mean Corpuscular Hemoglobin Concent 33, Red Cell Distribution Width 12.9, Platelet Count 178, Mean Platelet Volume 10.6H, Neutrophils (%) (Auto) 87H, Lymphocytes (%) (Auto) 8L, Monocytes (%) (Auto) 5, Eosinophils (%) (Auto) 1, Basophils (%) (Auto) 0, Neutrophils # (Auto) 9.0H, Lymphocytes # (Auto) 0.8L, Monocytes # (Auto) 0.5, Eosinophils # (Auto) 0.1, Basophils # (Auto) 0.0, Neutrophils % (Manual) 87, Lymphocytes % (Manual) 10, Monocytes % (Manual) 2, Eosinophils % (Manual) 1, Sodium Level 138, Potassium Level 3.8, Chloride Level 101, Carbon Dioxide Level 28, Anion Gap 9, Blood Urea Nitrogen 10, Creatinine 0.74, Estimat Glomerular Filtration Rate > 60, BUN/Creatinine Ratio 14, Glucose Level 161H, Calcium Level 9.2 04/24/17 13:03: Vancomycin Level Trough 14.6 04/25/17 06:17: White Blood Count 7.9, Red Blood Count 4.35, Hemoglobin 13.8, Hematocrit 41, Mean Corpuscular Volume 95, Mean Corpuscular Hemoglobin 32, Mean Corpuscular Hemoglobin Concent 33, Red Cell Distribution Width 12.5, Platelet Count 188, Mean Platelet Volume 10.4, Neutrophils (%) (Auto) 79H, Lymphocytes (%) (Auto) 11L, Monocytes (%) (Auto) 8, Eosinophils (%) (Auto) 1, Basophils (%) (Auto) 1, Neutrophils # (Auto) 6.2, Lymphocytes # (Auto) 0.9L, Monocytes # (Auto) 0.7, Eosinophils # (Auto) 0.1, Basophils # (Auto) 0.0 Microbiology 04/21/17 Blood Culture - Preliminary, Resulted No growth Assessment/Plan Assessment/Plan Assess & Plan/Chief Complaint Cellulitis left forearm. Abscess. Consult surgery. . 04/25/17. Abscess left forearm had surgery yesterday. New-onset hypertension put on lisinopril. Patient feeling better today Waiting for C&S Clinical Quality Measures DVT/VTE Risk/Contraindication: Risk Factor Score Per Nursin RFS Level Per Nursing on Admit: 4+=Very High NIRAV JOSE DO Apr 25, 2017 07:28
[2017-04-25 08:00] VITALS: BP 118/69
[2017-04-25] MEDS: lisINopril 10 MG (PRINIVIL) TAB PO SCH (08:28)
[2017-04-25] MEDS: LEVOFLOXACIN 750 MG/D5W 150 ML PRE-MIX IV SCH (11:03)
--- NOTE | 2017-04-25 15:20 | Anesthesia-General Post-Op ---
General Patient Condition Mental Status/LOC: Same as Preop Cardiovascular: Satisfactory Nausea/Vomiting: Absent Respiratory: Satisfactory Pain: Controlled Complications: Absent Post Op Complications Complications None Follow Up Care/Instructions Patient Instructions None needed. Anesthesia/Patient Condition Patient Condition Patient is doing well, no complaints, stable vital signs, no apparent adverse anesthesia problems. NEWTON MENDIOLA DO Apr 25, 2017 15:20
[2017-04-25] MEDS: ENOXAPARIN 40 MG/0.4 ML (LOVENOX) SYR SC SCH (15:38)
[2017-04-25 16:50] VITALS: BP 113/70
[2017-04-25] MEDS: ATORVASTATIN 10 MG (LIPITOR) TABLET PO SCH (21:43)
[2017-04-26] VITALS: BP 135/72
[2017-04-26] MEDS: VANCOMYCIN 1 GM/NS 250 ML IVPB IV SCH ×4 (03:16→15:12)
[2017-04-26] MEDS: CYCLOBENZAPRINE 10 MG (FLEXERIL) TAB PO SCH (05:16)
[2017-04-26] MEDS: SINEMET 25/100 (CARBIDOPA/LEVODOPA) TAB PO SCH ×3 (05:16→15:10)
[2017-04-26 06:00] LABS: BASOPHILS % (AUTO) 1 % (0-10); EOSINOPHILS # (AUTO) 0.2 10^3/uL (0.0-0.3); EOSINOPHILS % (AUTO) 3 % (0-10); LYMPHOCYTES # (AUTO) 1.3 X 10^3 (1.0-4.0); LYMPHOCYTES % (AUTO) 16 % (12-44); MEAN CORPUSCULAR HEMOGLOBIN 32 PG (25-34); MEAN CORPUSCULAR HGB CONC 33 G/DL (32-36); MEAN CORPUSCULAR VOLUME 96 FL (80-99); MEAN PLATELET VOLUME 10.3 FL (7.4-10.4); MONOCYTES # (AUTO) 0.6 X 10^3 (0.0-1.0); MONOCYTES % (AUTO) 8 % (0-12); NEUTROPHILS # (AUTO) 5.8 X 10^3 (1.8-7.8); NEUTROPHILS % (AUTO) 73 % (42-75); PLATELET COUNT 203 10^3/uL (130-400); RED CELL DISTRIBUTION WIDTH 12.7 % (10.0-14.5); WHITE BLOOD COUNT 7.9 10^3/uL (4.3-11.0)
[2017-04-26] MEDS: SINEMET CR 50/200 (CARBIDOPA/LEVODOPA SA) TAB PO SCH ×2 (06:05→11:40)
[2017-04-26] MEDS: CATHETER FLUSH 10 ML SYR IV SCH ×2 (06:05→15:11)
[2017-04-26 06:30] LABS: ANION GAP 9 MMOL/L (5-14); BLOOD UREA NITROGEN 14 MG/DL (7-18); BUN/CREATININE RATIO 18; CARBON DIOXIDE 29 MMOL/L (21-32); CHLORIDE 104 MMOL/L (98-107); GFR ESTIMATED > 60; GLUCOSE 95 MG/DL (70-105); POTASSIUM 3.9 MMOL/L (3.6-5.0); SODIUM 142 MMOL/L (135-145)
--- NOTE | 2017-04-26 07:43 | Progress Note (SOAP) ---
Subjective Time Seen by Provider: 07:40 Subjective/Events-last exam abscess left forearm area Gram positive cocci in chains. Patient feeling better. Patient not hypertensive today. Objective Exam Vital Signs Date Time Temp Pulse Resp B/P (MAP) Pulse Ox O2 Delivery O2 Flow Rate FiO2 04/26/17 00:00 97.3 79 20 135/72 100 Room Air 04/25/17 21:00 Room Air 04/25/17 16:50 98.9 83 18 113/70 99 Room Air 04/25/17 08:20 98 Room Air 04/25/17 08:00 97.8 96 20 118/69 98 Room Air Capillary Refill : Less Than 3 Seconds General Appearance: No Apparent Distress, WD/WN Neck: Full Range of Motion, Normal Inspection Respiratory: No Accessory Muscle Use, No Respiratory Distress Cardiovascular: Regular Rate, Rhythm Results Lab Laboratory Tests 04/26/17 05:51 Laboratory Tests 04/26/17 05:51: White Blood Count 7.9, Red Blood Count 4.20L, Hemoglobin 13.4, Hematocrit 41, Mean Corpuscular Volume 96, Mean Corpuscular Hemoglobin 32, Mean Corpuscular Hemoglobin Concent 33, Red Cell Distribution Width 12.7, Platelet Count 203, Mean Platelet Volume 10.3, Neutrophils (%) (Auto) 73, Lymphocytes (%) (Auto) 16 , Monocytes (%) (Auto) 8, Eosinophils (%) (Auto) 3, Basophils (%) (Auto) 1, Neutrophils # (Auto) 5.8, Lymphocytes # (Auto) 1.3, Monocytes # (Auto) 0.6, Eosinophils # (Auto) 0.2, Basophils # (Auto) 0.0, Sodium Level 142, Potassium Level 3.9, Chloride Level 104, Carbon Dioxide Level 29, Anion Gap 9, Blood Urea Nitrogen 14, Creatinine 0.80, Estimat Glomerular Filtration Rate > 60, BUN/ Creatinine Ratio 18, Glucose Level 95, Calcium Level 9.0 Microbiology 04/21/17 Blood Culture - Preliminary, Resulted No growth 04/24/17 MRSA Screen - Final, Complete MRSA not isolated 04/24/17 Gram Stain - Final, Resulted 04/24/17 Anaerobic Culture, Resulted Pending 04/24/17 Surgical Culture - Preliminary, Resulted Gram Positive Cocci In Chains Assessment/Plan Assessment/Plan Assess & Plan/Chief Complaint Cellulitis left forearm. Abscess. Consult surgery. . 04/25/17. Abscess left forearm had surgery yesterday. New-onset hypertension put on lisinopril. Patient feeling better today Waiting for C&S. . 04/26/17. Abscess left forearm opened. Culture gram-positive I cocci in chains Patient feeling better Hypertension resolved Clinical Quality Measures DVT/VTE Risk/Contraindication: Risk Factor Score Per Nursin RFS Level Per Nursing on Admit: 4+=Very High NIRAV JOSE DO Apr 26, 2017 07:43
[2017-04-26 08:00] VITALS: BP 108/59
[2017-04-26] MEDS: lisINopril 10 MG (PRINIVIL) TAB PO SCH (10:00)
--- NOTE | 2017-04-26 15:02 | Progress Note-Standard ---
Standard Progress Note Progress Notes/Assess & Plan Date Seen by Provider: Apr 26, 2017 Time Seen by Provider: 14:10 Progress/Assessment & Plan cellulitis along the forearm much improved. Wound appears to be granulating well. Could be discharged on oral antibiotics. Final Diagnosis abscess of left forearm MARIAMA HSU MD Apr 26, 2017 3:02 pm
--- NOTE | 2017-04-26 15:05 | Discharge Inst-Simple/Standard ---
Discharge Inst-Standard Discharge Medications New, Converted or Re-Newed RX: Other Patient Instructions/Follow Up Plan of Care/Instructions/FU: dressings with Xeroform gauze once a day. Follow-up with me in 2 weeks Activity as Tolerated: Yes Discharge Diet: No Restrictions Planned Outpatient Orders/Ref. Pneu Vac Indicated: Yes MARIAMA HSU MD Apr 26, 2017 3:05 pm
[2017-04-26] MEDS: ENOXAPARIN 40 MG/0.4 ML (LOVENOX) SYR SC SCH (15:11)
[2017-04-26] MEDS ORDERED: SULF1TAB35 PO (15:51)
[2017-04-26 16:26] VITALS: BP 108/59
--- NOTE | 2017-04-27 04:37 | DISCHARGE SUMMARY ---
DATE OF SERVICE: 04/26/2017 DIAGNOSIS: Abscess of left forearm with cellulitis. This patient was admitted with cellulitis of the left forearm with an associated abscess. Following IV antibiotics, he underwent formal incision and drainage and has made a reasonable recovery. Recommendations regarding local wound care have been given with followup arrangements being made. Job ID: [id number] DocumentID: [id number] Dictated Date: 04/26/2017 15:03:46 Nursery Helper Date: 04/27/2017 04:37:37 Dictated By: MARIAMA HSU MD [facility]
[2017-06-30] MEDS ORDERED: HYDR-3812 PO (10:42)
== END 2017-04-26 16:48 | disposition home or self-care (01) | DRG 603 ==
LOC: 4TH 11:48
PROVIDERS: ADMIT Family Medicine; ATTEND Family Medicine
PROC: 0H9EXZZ Drainage of Left Lower Arm Skin, External Approach (ICD-10-PCS; principal; 2017-04-24 19:50)
DX: L03.114 Cellulitis of left upper limb (principal); L72.3 Sebaceous cyst; B95.2 Enterococcus as the cause of diseases classified elsewhere; G20 Parkinson's disease; E78.5 Hyperlipidemia, unspecified; H02.403 Unspecified ptosis of bilateral eyelids; I10 Essential (primary) hypertension
CPT/HCPCS: 36415; 80048; 80053; 80202; 85007; 85025; 85027; 87040; 87070; 87075; 87077; 87081; 87205

== ENCOUNTER 2017-06-28 05:27 | Outpatient (CLI) | payer MEDICARE ==
[~2017-06-28] VITALS: Ht 172.7 cm; Wt 64.0 kg
[~2017-06-28 05:27] MED LIST changes: +CARB1TAB19 PO; +CEFD300C3 PO; +DOXY100T2 PO; +SULF1TAB35 PO
[2017-06-28] MEDS ORDERED: ATOR10TA66 PO (09:05)
== END 2017-06-28 09:18 ==
LOC: PREOP 05:27
PROVIDERS: ATTEND Surgery
DX: Z01.818 Encounter for other preprocedural examination (principal); L98.9 Disorder of the skin and subcutaneous tissue, unspecified

== ENCOUNTER 2017-06-30 08:04 | Day surgery (SDC) | payer MEDICARE ==
[2017-06-30] VITALS (7 sets, daily range): BP systolic 139–154; BP diastolic 87–104
[~2017-06-30] VITALS: Ht 172.7 cm; Wt 64.0 kg
[2017-06-30] MEDS ORDERED: ceFAZolin 1,000 MG (ANCEF) VIAL ONE (08:08)
[2017-06-30] MEDS ORDERED: NS (IVPB) 50 ML ONE (08:08)
[2017-06-30] MEDS ORDERED: LACTATED RINGERS 1,000 ML IV PRN (08:22)
[2017-06-30] MEDS ORDERED: ceFAZolin 1 GM/NS 50 ML IVPB IV ONE ×2 (08:30)
--- NOTE | 2017-06-30 08:38 | Progress Note-Pre Operative ---
Pre-Operative Progress Note H&P Reviewed The H&P was reviewed, patient examined and no changes noted. Date Seen by Provider: Jun 22, 2017 Time Seen by Provider: 15:00 Date H&P Reviewed: Jun 30, 2017 Time H&P Reviewed: 08:38 Pre-Operative Diagnosis: Sebaceous cyst of left forearm and neck MARIAMA HSU MD Jun 30, 2017 8:38 am
[2017-06-30] MEDS ORDERED: BUP/EPI 0.5% 1:200,000 (MARCAINE) 10ML VIAL IJ ONE (08:42)
[2017-06-30] MEDS ORDERED: LACTATED RINGERS 1,000 ML IV ONE (08:43)
[2017-06-30] MEDS ORDERED: LIDOCAINE JELLY 2% (XYLOCAINE) 5 ML TUBE ONE (08:43)
[2017-06-30] MEDS ORDERED: ROCURONIUM 50 MG/5 ML (ZEMURON) VIAL IV ONE (08:43)
[2017-06-30] MEDS ORDERED: proPOfol 200 MG/20 ML (DIPRIVAN) VIAL IV ONE (08:43)
[2017-06-30] MEDS ORDERED: ONDANSETRON 4 MG/2 ML (SDV) Z0FRAN ONE (08:43)
[2017-06-30] MEDS ORDERED: fentaNYL INJECTION 100 MCG/2 ML AMP ONE (08:43)
[2017-06-30] MEDS ORDERED: LIDOCAINE PF 2% 5 ML (XYLOCAINE) VIAL ONE (08:43)
[2017-06-30] MEDS ORDERED: LABETALOL HCL 20 MG/4 ML VIAL IV ONE (08:45)
[2017-06-30] MEDS ORDERED: SEVOFLURANE (ULTANE) 15 ML INHAL SOLN ONE ×3 (10:14→10:47)
[2017-06-30] MEDS ORDERED: HYDR-3812 PO (10:42)
--- NOTE | 2017-06-30 10:42 | Operative Report ---
Operative Report Date of Procedure/Surgery Jun 30, 2017 Surgeon (s) MARIAMA HSU MD Personal Carer (s): Tameka Garrido(Medical student) Post-Operative Diagnosis Same Procedure Performed Excision of sebaceous cyst left anterior neck Excision of sebaceous cyst left forearm Description of Procedure Anesthesia Type: General Estimated blood loss (mL): Minimal Specimen(s) collected/removed sebaceous cyst 2 Description of the Procedure description of the procedures: He was placed supine on the operating table and a general anesthesia induced. Ancef was administered intravenously as prophylaxis against wound infection. 1. Excision of sebaceous cyst left anterior neck: after adequate antiseptic preparation, pre-emptying analgesia was established using 0.5 percent Marcaine with epinephrine. An elliptical incision about 4 cm long was made along the skin creases and the cyst excised intact. Hemostasis was achieved using cautery and the incision closed using 4-0 Vicryl, in a subcuticular fashion. Steri-Strips and a nonadherent dressing with applied. 2. Excision of previously infected sebaceous cyst left forearm: Pre-emptive analgesia was established in a similar fashion. An elliptical incision about 6 cm long was made in the longitudinal fashion and the cyst excised. Hemostasis was achieved using cautery and the incision closed using interrupted 4-0 nylon sutures. A nonadherent dressing was then applied He tolerated the procedures well, was extubated in the operating room and taken to the recovery room in a stable condition. Findings of the Procedure See op report. Allergies and Home Medications Allergies Coded Allergies: No Known Drug Allergies (Verified , 06/28/17) Home Medications Aspirin 81 Mg Tablet.dr, 81 MG PO 2200, (Reported) Atorvastatin Calcium 10 Mg Tablet, 10 MG PO HS, (Reported) Carbidopa/Levodopa 1 Each Tablet.er, 1 TAB PO 0600,1100,1600, (Reported) Carbidopa/Levodopa 1 Each Tablet, 1 TAB PO 0500,0900,1400,1900, (Reported) Cyclobenzaprine HCl 10 Mg Tablet, 10 MG PO 0500,1600, (Reported) MARIAMA HSU MD Jun 30, 2017 10:42 am
--- NOTE | 2017-06-30 10:43 | Discharge Inst-Simple/Standard ---
Discharge Inst-Standard Discharge Medications New, Converted or Re-Newed RX: RX on Chart Patient Instructions/Follow Up Plan of Care/Instructions/FU: Left forearm to be kept elevated as much as possible. Dressing to be replaced with a Band-Aid every 48 hours. Follow-up with my nurse in 2 weeks for suture removal from the left forearm. No sutures on the neck Activity as Tolerated: Yes Discharge Diet: No Restrictions MARIAMA HSU MD Jun 30, 2017 10:43 am
[2017-06-30] MEDS ORDERED: morphine INJ 10 MG/ML 1ML (SYR OR VIAL) IVP PRN (11:15)
[2017-06-30] MEDS ORDERED: MEPERIDINE (DEMEROL) INJ 50 MG/ML IVP PRN (11:15)
[2017-06-30] MEDS ORDERED: ONDANSETRON 4 MG/2 ML (SDV) Z0FRAN IVP PRN (11:15)
== END 2017-06-30 13:50 | disposition home or self-care (01) ==
LOC: SDC 08:04
PROVIDERS: ATTEND Surgery
DX: L72.3 Sebaceous cyst (principal); G20 Parkinson's disease; E78.5 Hyperlipidemia, unspecified; Z79.899 Other long term (current) drug therapy; Z79.82 Long term (current) use of aspirin
CPT/HCPCS: 87081

== ENCOUNTER → 2019-04-24 | Outpatient (CLI) | payer MEDICARE ==
[~2019-04-24] MED LIST changes: +ACHD5005 PO; +LACT-72 PO; +OMEP1PAC5 PO
--- NOTE | 2019-04-24 17:54 | Diagnostic Imaging Report ---
EXAMINATION: Scrotal ultrasound. HISTORY: Hernia. FINDINGS: No comparison available. The right testicle is normal in size and echogenicity measuring 4.2 x 1.9 x 2.6 cm. There is normal color Doppler flow to right testicle. The epididymis is normal. The left testicle is normal in size and echogenicity. It measures 4.5 x 2.1 x 2.8 cm. There is normal color Doppler flow to left testicle. No hydrocele or varicocele is seen. There is a large left inguinal hernia displacing the left testicle. IMPRESSION: 1. Large left inguinal hernia. Dictated by: Dictated on workstation # [id number]
== END ==
LOC: RAD 15:32
PROVIDERS: ATTEND Family Medicine
DX: K40.90 Unilateral inguinal hernia, without obstruction or gangrene, not specified as recurrent (principal)
CPT/HCPCS: 76870

== ENCOUNTER 2019-04-30 14:06 | Outpatient (CLI) | payer MEDICARE ==
[~2019-04-30] VITALS: Ht 170.2 cm; Wt 64.4 kg
[~2019-04-30 14:06] MED LIST changes: +ASPI-586 PEG; -ASPI-586 PO
[2019-04-30 14:22] VITALS: BP 144/82
[2019-04-30] MEDS ORDERED: CARB1TAB22 PEG ×3 (14:39→14:40)
[2019-05-01] MEDS ORDERED: ACHD5005 PO (13:42)
== END 2019-04-30 14:30 | disposition home or self-care (01) ==
LOC: PREOP 14:06
PROVIDERS: ATTEND Surgery
DX: Z01.818 Encounter for other preprocedural examination (principal)
CPT/HCPCS: 87081

== ENCOUNTER 2019-05-01 10:35 | Day surgery (SDC) | payer MEDICARE ==
[~2019-05-01] VITALS: Ht 170.2 cm; Wt 64.4 kg
[2019-05-01] VITALS (12 sets, daily range): BP systolic 122–146; BP diastolic 71–105
[~2019-05-01 10:35] MED LIST changes: +CARB1TAB22 PEG
[2019-05-01] MEDS ORDERED: ceFAZolin 2 GM/50 ML NS 50 ML IV ONE (10:45)
[2019-05-01] MEDS: LACTATED RINGERS 1,000 ML IV PRN ×2 (11:10→14:20)
[2019-05-01] MEDS ORDERED: DEXAMETHASONE 10 MG/ML (DECADRON) 1 ML VIAL ONE (11:14)
[2019-05-01] MEDS ORDERED: proPOfol 200 MG/20 ML (DIPRIVAN) VIAL IV ONE (11:14)
[2019-05-01] MEDS ORDERED: ONDANSETRON 4 MG/2 ML (SDV) Z0FRAN ONE (11:14)
[2019-05-01] MEDS ORDERED: SEVOFLURANE (ULTANE) 15 ML INHAL SOLN ONE ×4 (11:14→13:32)
[2019-05-01] MEDS ORDERED: LIDOCAINE PF 2% 5 ML (XYLOCAINE) VIAL ONE (11:14)
[2019-05-01] MEDS ORDERED: fentaNYL INJECTION 100 MCG/2 ML AMP ONE (11:14)
[2019-05-01] MEDS ORDERED: BUP/EPI 0.5% 1:200,000 (MARCAINE) 10ML VIAL IJ ONE (11:53)
[2019-05-01] MEDS ORDERED: GLYCOPYRROLATE 0.2 MG/ML (ROBINUL) 2 ML VIAL ONE (13:23)
--- NOTE | 2019-05-01 13:41 | Progress Note-Post Operative ---
Post-Operative Progess Note Surgeon (s)/Group Exercise Class Instructor (s) Surgeon AMBROSIO VALLEJO DO Group Exercise Class Instructor: Kate Pre-Operative Diagnosis Left ing hernia Post-Operative Diagnosis Left Incarcerated Indirect Inguinal Hernia Procedure & Operative Findings Date of Procedure 05/01/19 Procedure Performed/Findings Left inguinal herniarraphy with mesh placement Anesthesia Type GET Estimated Blood Loss Estimated blood loss (mL): scant Specimens/Packing Specimens Removed hernia sac AMBROSIO VALLEJO DO May 01, 2019 13:41
[2019-05-01] MEDS ORDERED: ACHD5005 PO (13:42)
--- NOTE | 2019-05-01 13:44 | Discharge Inst-Surgical ---
Discharge Inst-Surgical Reconcile Patient Problems Problems Reviewed?: Yes Depart Medication/Instructions New, Converted or Re-Newed RX: RX Given to Pt/Family Patient Instructions Follow up Appt: Make appointment for 1 week. [phone] Instructions: No lifting greater than 20 pounds. No strenuous activity. May shower in 24 hours, no tub bath or soaking. Use incentive spirometer at home as directed. No Smoking Skin/Wound Care: May remove bandages in am. You need to leave the Dermabond on incision it will fall off on it's own. Symptoms to Report: Appetite Changes, Extremity Discoloration, Numbness/Tingling, Swelling Increased, Bleeding Excessive, Eyesight Changes, Pain Increased, Urine Color Change, Constipation(Persistent), Fever over 101 degree F, Pain/Pressure in chest, Urinating Difficulty, Cough Up/Vomit Blood, Heart Beat Irreg/Pounding, Pain/Pressure in jaw, Cramps in feet or legs, Lightheadedness, Pain/Pressure in shoulder, Diarrhea(Persistent), Memory Changes Suddenly, Questions/Concerns, Weight gain consecutive days, Dizziness/Fainting, Nausea/Vomiting, Shortness of Breath, Weight gain over 2 pounds If questions or concerns contact your physician Or seek help at emergency department. Activity Activity as Tolerated: Yes Activity Instructions: Avoid Stress to Incision Driving Instructions: No Driving/Refer to Dr. Carr Discharge Diet: No Restrictions Diet After 24 Hours: Clear Liquid if Nauseous If Any Problems/Questions/Issu: Contact Your Physician, Go to Emergency Room Skin/Wound Care Infection Signs and Symptoms: Increased Redness, Foul Odor of Wound, Increased Drainage, Skin Itchy or Has a Rash, Increased Swelling, Temperature Above 101 F Bathing Instructions: Shower Stitches/Orefield/Dermabond Dis: Dermabond Ice Pack: Ice On and Off Site AMBROSIO VALLEJO DO May 01, 2019 13:43
[2019-05-01] MEDS ORDERED: morphine INJ 10 MG/ML 1ML (SYR OR VIAL) IVP ONE (14:00)
[2019-05-01] MEDS ORDERED: ONDANSETRON 4 MG/2 ML (SDV) Z0FRAN IVP PRN (14:00)
[2019-05-01] MEDS ORDERED: morphine INJ 10 MG/ML 1ML (SYR OR VIAL) ONE (14:01)
--- NOTE | 2019-05-01 14:02 | Anesthesia-General Post-Op ---
General Patient Condition Mental Status/LOC: Same as Preop Cardiovascular: Satisfactory Nausea/Vomiting: Absent Respiratory: Satisfactory Pain: Controlled Complications: Absent Post Op Complications Complications None Follow Up Care/Instructions Patient Instructions None needed. Anesthesia/Patient Condition Patient Condition Patient is doing well, no complaints, stable vital signs, no apparent adverse anesthesia problems. No complications reported per nursing. WANDA ROWE CRNA May 01, 2019 14:02
--- NOTE | 2019-05-01 20:58 | OPERATIVE REPORT ---
DATE OF SERVICE: 05/01/2019 PREOPERATIVE DIAGNOSIS: Incarcerated left inguinal hernia. POSTOPERATIVE DIAGNOSES: Incarcerated left inguinal hernia with sigmoid colon indirect hernia. SURGEON: David Muse DO DRYWALL FOREMAN: Ricardo Love DO ANESTHESIA: General endotracheal tube. SPECIMEN: Hernia sac. BLOOD LOSS: Scant. FLUIDS: Per anesthesia. POSTOPERATIVE CONDITION: Stable. INDICATION FOR PROCEDURE: The patient is a 68-year-old male who had noted an increasingly large bulge in left inguinal region diagnosed with incarcerated inguinal hernia. FINDINGS: The patient had a large portion of most likely sigmoid colon in the inguinal region down to the testicle. It was indirect. PROCEDURE NOTE: After informed consent was obtained, the patient was brought to the operating room, placed on the operating table in supine position, sterilely prepped and draped in normal fashion. Local lidocaine was used to perform an ilioinguinal nerve block as well as pubic tubercle block and infiltrated left inguinal region with local. I made an incision with #15 blade, carried down to skin into subcutaneous tissue, deepened to subcutaneous tissue with Bovie electrocautery down to the fascia of the external oblique. External oblique fascia was then excised through the external inguinal ring with Bovie electrocautery and then able to go through the hernia sac, immediately encountered some sigmoid colon. It was a large bowel. I carefully started pulling this out of the scrotum. Once we pulled this out and carefully started pushing this up into the abdomen, it all looked viable as no loss of blood supply. Once we were able to push back in then able to get under the cord and cord structures at the pubic tubercle, placed a [place] drain, put in inferolateral direction and then started taking the hernia sac off the cord and cord structures with blunt dissection as well as Bovie electrocautery. Once this was completely freed up then twisted this down and then suture ligated with 0 Vicryl suture and then tied another 0 Vicryl suture. Cut the hernia sac off and passed it off the table. The floor of the canal looked okay, so elected to place a left-sided Parietex mesh into the inguinal canal to strengthen this area, cut it to fit in there. Sutured this to the pubic tubercle with 2-0 Vicryl and then encircled the cord with a precut hole and placed rest of the mesh up under the external oblique fascia, laid in very nicely, copiously irrigated with normal saline, suctioned this out and then closed the external oblique fascia with a 3-0 Vicryl running suture thereby recreating the external inguinal ring, internal inguinal ring had been recreated by the mesh. Closed the Brittany's fascia with 3-0 Vicryl three interrupted sutures and closed the skin with 4-0 undyed Monocryl in running subcuticular fashion. The area was cleaned and dried and Dermabond placed as well as dressing. The patient tolerated the procedure well. Sponge, instrument and needle count were correct at the end of the case. Dr. Love assisted in this case helping to close the incision, identify anatomy and hold anatomy out of the way. Job ID: [id number] DocumentID: [id number] Dictated Date: 05/01/2019 13:39:09 Compensation Vice President Date: 05/01/2019 20:57:35 Dictated By: DO MONTRELL LING
== END 2019-05-01 16:15 | disposition home or self-care (01) ==
LOC: SDC 10:35
PROVIDERS: ATTEND Surgery
DX: K40.30 Unilateral inguinal hernia, with obstruction, without gangrene, not specified as recurrent (principal); G20 Parkinson's disease; R13.11 Dysphagia, oral phase; R53.83 Other fatigue; E78.5 Hyperlipidemia, unspecified; R53.1 Weakness; E03.9 Hypothyroidism, unspecified; R25.1 Tremor, unspecified; Z80.9 Family history of malignant neoplasm, unspecified; Z83.3 Family history of diabetes mellitus; Z82.49 Family history of ischemic heart disease and other diseases of the circulatory system

== ENCOUNTER 2019-07-18 14:02 | Emergency (ER) | payer MEDICARE ==
[~2019-07-18] VITALS: Ht 165.1 cm; Wt 64.9 kg
--- NOTE | 2019-07-18 14:30 | NUR ---
PT FEEDING TUBE FLUSHED W 30WATER BY DR C[place], TUBE HAS LARGE AMT OF RESIDUE NOTED IN CLEAR TUBING STATES NEARLY A YEAR OLD.
--- NOTE | 2019-07-18 14:41 | ED GI ---
General Chief Complaint: Catheter/Drain/Tube Problems Stated Complaint: FEEDING TUBE ISSUE Nursing Triage Note: sent over by dr joshi to have feeding tube evaluated since it is not draning properly Sepsis Screen: No Definite Risk Source of Information: Patient, Spouse Exam Limitations: No Limitations History of Present Illness Date Seen by Provider: Jul 18, 2019 Time Seen by Provider: 14:24 Initial Comments Patient presents ER by private conveyance from Dr. Joshi's clinic where he was seen because the was having difficulty passing or withdrawing anything from his PEG tube. The PEG tube was placed by Dr. Vallejo approximately one year prior. He has a history of Parkinson's and has difficulty with swallowing and getting choked on secretions. She has been using his PEG tube for her medications and feeds. She used [employer] for this morning was unsuccessful unblocking it so she went to the primary care office. She has not talk to the surgeon yet. Primary care office [facility]. PEG tube is never been replaced or displaced. Allergies and Home Medications Allergies Coded Allergies: No Known Drug Allergies (Verified , 06/28/17) Home Medications Aspirin 81 Mg Tablet., 81 MG PEG 2200, (Reported) Carbidopa/Levodopa 1 Each Tablet, 2 EACH PEG DAILY@0600, (Reported) Carbidopa/Levodopa 1 Each Tablet, 1 EACH PEG 0900,1200,1500,1800, (Reported) Carbidopa/Levodopa 1 Each Tablet, 1 EACH PEG 2100, (Reported) Hydrocodone Bit/Acetaminophen 1 Tab Tab, 1 TAB PO Q6H PRN for PAIN-MODERATE Prescribed by: AMBROSIO VALLEJO on 05/01/19 1342 Patient Home Medication List Home Medication List Reviewed: Yes Review of Systems Review of Systems Constitutional: No chills, No diaphoresis EENTM: No Blurred Vision, No Double Vision Respiratory: Denies Cough, Denies Shortness of Air Cardiovascular: Denies Chest Pain, Denies Edema Gastrointestinal: See HPI; Denies Constipated, Denies Diarrhea, Denies Nausea Genitourinary: Denies Burning, Denies Discharge Musculoskeletal: No back pain, No joint pain Skin: No pruritus, No rash Psychiatric/Neurological: Denies Headache, Denies Numbness Past Uyfukbc-Yfvoqb-[id number] Hx Patient Social History Alcohol Use: Denies Use Recreational Drug Use: No Recent Foreign Travel: No Contact w/Someone Who Travel: No Recent Infectious Disease Expo: No Recent Hopitalizations: No Physical Abuse: No Sexual Abuse: No Mistreated: No Fear: No Immunizations Up To Date Tetanus Booster (TDap): Unknown Date of Pneumonia Vaccine: Jun 27, 2018 Seasonal Allergies Seasonal Allergies: No Past Medical History Surgeries: Yes (INFECTED CYST-LEFT ARM AND NECK, peg tube, INGUINAL HERNIA ) Respiratory: No Cardiac: No High Cholesterol Neurological: Yes Parkinson's Disease Reproductive Disorders: No Sexually Transmitted Disease: No HIV/AIDS: No Genitourinary: No Gastrointestinal: Yes (ing hernia) Chronic Constipation, Hemorrhoids Musculoskeletal: No Endocrine: No HEENT: Yes (isn't able to swallow anything, including his saliva) Loss of Vision: Bilateral Hearing Impairment: Hard of Hearing Cancer: No Psychosocial: No Integumentary: No Blood Disorders: No Adverse Reaction/Blood Tranf: No (N/A) Family Medical History Diabetes Physical Exam Vital Signs Vital Signs - First Documented 07/18/19 14:05 Temp 36.4 Pulse 75 Resp 18 B/P (MAP) 135/84 (101) Pulse Ox 100 Capillary Refill : Less Than 3 Seconds Height/Weight/BMI Height: 5'7.00" Weight: 142lbs. 0.0oz. [id number]; 23.00 BMI Method: General Appearance: WD/WN, no apparent distress HEENT: PERRL/EOMI, pharynx normal Neck: full range of motion, normal inspection Respiratory: no respiratory distress, no accessory muscle use Cardiovascular: normal peripheral pulses, regular rate, rhythm Peripheral Pulses: 2+ Radial Pulses (R), 2+ Radial Pulses (L) Gastrointestinal: normal bowel sounds, non tender, soft, other (PEG tube in place with minimal mucoid discharge no erythema or induration or fluctuance palpable) Neurologic/Psychiatric: alert, oriented x 3 Skin: normal color, warm/dry Progress/Results/Core Measures Results/Orders My Orders Orders - KATHIE CLEVELAND Peg Tube Check (07/18/19 14:34) Diatrizoate Meglum/Sodium 37% (Gastrogra (07/18/19 15:00) Medications Given in ED Current Medications Medications Dose Ordered Sig/Willy Route Start Time Stop Time Status Last Admin Dose Admin Diatrizoate Meglum/ Diatrizoate Sod 120 ml ONCE ONCE PO 07/18/19 15:00 07/18/19 15:01 DC 07/18/19 14:54 30 ML Vital Signs/I&O 07/18/19 14:05 Temp 36.4 Pulse 75 Resp 18 B/P (MAP) 135/84 (101) Pulse Ox 100 Blood Pressure Mean: 101 POS Progress Progress Note : Time: 14:39 Progress Note Patient was able to easily flush 60 cc and withdrawal easily. Planned obtain Gastrografin views to confirm placement. Plan outpatient follow-up with Dr. Vallejo. Diagnostic Imaging Diagonstic Imaging: Xray Plain Films/CT/US/NM/MRI: abdomen (PEG tube placement) Comments NAME: ARTEMIO STATON MED REC#: [id number] PT STATUS: REG ER : 1950 PHYSICIAN: KATHIE CLEVELAND MD ADMIT DATE: 07/18/19/ER Draft POSDate of Exam:07/18/19 PEG TUBE CHECK INDICATION: Questionable PEG tube malfunction. EXAMINATION: Approximately 60 mL total of 30 mL Gastrografin and 30 mL of water was injected through the patient's indwelling PEG tube and imaging over the abdomen was obtained. FINDINGS: There is opacification of the stomach. No abnormal accumulation of contrast or extravasation is seen. IMPRESSION: Satisfactory PEG tube location. Dictated on workstation # [id number] Dict: 07/18/19 1510 Trans: 07/18/[address] [facility] [id number] Interpreted by: MANISH ANDERSON MD Electronically signed by: Reviewed: Reviewed by Me Departure Impression Primary Impression: Malfunction of percutaneous endoscopic gastrostomy (PEG) tube Disposition: HOME, SELF-CARE Condition: Stable Departure-Patient Inst. Decision time for Depature: 15:41 Referrals: AMBROSIO VALLEJO RICHARD A DO (PCP/Family) Primary Care Physician Patient Instructions: How to Care for Your PEG Tube Add. Discharge Instructions: Please follow-up with the general surgeon Dr. Vallejo next 07/23/19 @ 0915. Please review the handout on care of the PEG tube. All discharge instructions reviewed with patient and/or family. Voiced understanding. KATHIE CLEVELAND Jul 18, 2019 14:41 POS
[2019-07-18] MEDS ORDERED: DIATRIZOATE MEGLUM/SODIUM 37% 120 ML (GASTROGRAFIN) PO ONE (15:00)
--- NOTE | 2019-07-18 15:16 | Diagnostic Imaging Report ---
INDICATION: Questionable PEG tube malfunction. EXAMINATION: Approximately 60 mL total of 30 mL Gastrografin and 30 mL of water was injected through the patient's indwelling PEG tube and imaging over the abdomen was obtained. FINDINGS: There is opacification of the stomach. No abnormal accumulation of contrast or extravasation is seen. IMPRESSION: Satisfactory PEG tube location. Dictated by: Dictated on workstation # [id number]
[2019-07-18 15:51] VITALS: BP 135/84
== END 2019-07-18 15:51 | disposition home or self-care (01) ==
LOC: EDUNIT# 14:02 → ER 14:03
DX: K94.23 Gastrostomy malfunction (principal); G20 Parkinson's disease; E78.00 Pure hypercholesterolemia, unspecified; Z79.82 Long term (current) use of aspirin
CPT/HCPCS: 49465